=== PATIENT | female | born 2000 | race African-American/Black ===

== ENCOUNTER 2020-12-27 11:12 | Emergency (ER) | payer MEDICAID ==
[~2020-12-27] VITALS: Ht 167.6 cm; Wt 53.0 kg
[2020-12-27] MEDS ORDERED: BIRTH CONTROL (11:25)
[2020-12-27] MEDS ORDERED: AMOX-494 MT (11:59)
[2020-12-27] MEDS ORDERED: IBUP-2029 MT (12:01)
[2020-12-27] MEDS ORDERED: IBUPROFEN 600MG TABLET PO ONE (12:15)
[2020-12-27] MEDS ORDERED: DEXAMETHASONE 4MG/ML 1ML VIAL IM SCH (12:15)
[2020-12-27 12:19] VITALS: BP 108/69
== END 2020-12-27 12:20 | disposition home or self-care (01) ==
LOC: ER 11:36
DX: J02.0 Streptococcal pharyngitis (principal); R59.0 Localized enlarged lymph nodes; J35.1 Hypertrophy of tonsils; M79.10 Myalgia, unspecified site; R50.9 Fever, unspecified; Z79.899 Other long term (current) drug therapy
CPT/HCPCS: 96372; 99283; J1100

== ENCOUNTER 2021-04-18 03:33 | Emergency (ER) | payer MEDICAID ==
[~2021-04-18 03:33] MED LIST: AMOX-494 MT; BIRTH CONTROL; IBUP-2029 MT
== END 2021-04-18 05:34 | disposition home or self-care (01) ==
LOC: ER 03:33
DX: Z53.21 Procedure and treatment not carried out due to patient leaving prior to being seen by health care provider (principal)

== ENCOUNTER 2022-07-29 13:45 | Emergency (ER) | payer MEDICAID ==
[~2022-07-29] VITALS: Ht 172.7 cm; Wt 50.0 kg
[2022-07-29 13:47] VITALS: BP 108/74
[2022-07-29] MEDS ORDERED: ACETAMINOPHEN 325MG TABLET PO STA (15:00)
[2022-07-29] MEDS ORDERED: SODIUM CHLORIDE 0.9% 1,000 ML IV ONE (15:00)
[2022-07-29 16:36] LABS: HEMATOCRIT. 32.5 % (36.0-48.0); HEMOGLOBIN. 10.3 g/dL (12.0-16.0); MEAN CORPUSCULAR HEMOGLOBIN 24.8 pg (28.0-32.0); MEAN CORPUSCULAR VOLUME 78.1 fL (81.0-99.0); MEAN PLATELET VOLUME 8.1 fl (7.4-10.4); PLATELET 334 x1000/uL (130-400); RED BLOOD CELL COUNT 4.16 mill/uL (4.2-5.4); RED CELL DISTRIBUTION WIDTH 20.6 % (11.6-14.6)
[2022-07-29 16:45] LABS: PROTHROMBIN TIME 11.1 sec (9.6-11.0)
[2022-07-29] MEDS ORDERED: ACETAMINOPHEN 325MG TABLET PO NR (16:45)
[2022-07-29 16:46] LABS: CHLORIDE 106 mEq/L (98-107)
[2022-07-29 16:55] LABS: ETHANOL BLOOD < 10 mg/dL
[2022-07-29 17:07] LABS: HCG SCREEN NEGATIVE
[2022-07-29] MEDS ORDERED: IOHEXOL-300 100 ML BOTTLE ONE (17:33)
[2022-07-29 18:21] LABS: PLATELET ESTIMATE NORMAL
[2022-07-29 19:01] LABS: CLARITY URINE CLEAR (CLEAR); COLOR URINE YELLOW (YELLOW); KETONES URINE 3+ (NEGATIVE); LEUKOCYTE ESTERASE URINE NEGATIVE (NEGATIVE); NITRITE URINE NEGATIVE (NEGATIVE); OCCULT BLOOD URINE 2+ (NEGATIVE); PROTEIN URINE NEGATIVE (NEGATIVE); SPECIFIC GRAVITY URINE 1.078 (1.005-1.030); UROBILINOGEN URINE 0.2 E.U./dL (0.2-1.0)
[2022-07-29 19:13] LABS: *AMPHETAMINES SCREEN URINE NEGATIVE (NEGATIVE); *BARBITURATES SCREEN URINE NEGATIVE (NEGATIVE); *BENZODIAZEPINES SCREEN URINE NEGATIVE (NEGATIVE); *COCAINE SCREEN URINE NEGATIVE (NEGATIVE); CANNABINOID URINE SCREEN PRESUMTIVE POSITIVE (NEGATIVE); METHADONE URINE SCREEN NEGATIVE (NEGATIVE); OPIATES URINE SCREEN NEGATIVE (NEGATIVE); PHENCYCLIDINE URINE SCREEN NEGATIVE (NEGATIVE)
[2022-07-29] MEDS ORDERED: ONDA4TAB50 MT (19:20)
[2022-07-29] MEDS ORDERED: NAPR-681 MT (19:20)
== END 2022-07-29 19:53 | disposition home or self-care (01) ==
LOC: ER 13:45
DX: N83.202 Unspecified ovarian cyst, left side (principal); D64.9 Anemia, unspecified; N94.6 Dysmenorrhea, unspecified; Z00.00 Encounter for general adult medical examination without abnormal findings; Z79.899 Other long term (current) drug therapy
CPT/HCPCS: 36415; 74177; 76830; 76856; 80053; 80305; 80320; 81003; 83690; 84703; 85025; 85610; 86850; 86900; 86901; 96360; 96361; 99285; J7030; Q9967; Z7610; G0480

== ENCOUNTER 2022-12-01 16:45 | Inpatient (IN) | payer MEDICAID ==
[~2022-12-01] VITALS: Ht 167.6 cm; Wt 48.5 kg
[~2022-12-01 16:45] MED LIST changes: +NAPR-681 MT; +ONDA4TAB50 MT
[2022-12-01] MEDS ORDERED: SODIUM CHLORIDE 0.9% 1,000 ML IV ONE ×2 (17:00→21:00)
[2022-12-01] MEDS ORDERED: DIPHENHYDRAMINE 50MG/ML VIAL IV ONE (17:00)
[2022-12-01] MEDS ORDERED: PANTOPRAZOLE SODIUM 40 MG/VIAL IV ONE (17:00)
[2022-12-01] MEDS ORDERED: PROCHLORPERAZINE 10MG/2ML VIAL IV PRN (17:00)
[2022-12-01] MEDS ORDERED: KETOROLAC 15MG/ML VIAL IV ONE (17:15)
[2022-12-01 19:27] LABS: CLARITY URINE CLEAR (CLEAR); COLOR URINE YELLOW (YELLOW); KETONES URINE 2+ (NEGATIVE); LEUKOCYTE ESTERASE URINE NEGATIVE (NEGATIVE); NITRITE URINE NEGATIVE (NEGATIVE); OCCULT BLOOD URINE NEGATIVE (NEGATIVE); PH URINE 8.5 (4.5-8.0); PROTEIN URINE TRACE (NEGATIVE); SPECIFIC GRAVITY URINE 1.017 (1.005-1.030)
[2022-12-01 19:29] LABS: HEMATOCRIT. 28.6 % (36.0-48.0); HEMOGLOBIN. 8.9 g/dL (12.0-16.0); MEAN CORPUSCULAR HEMOGLOBIN 23.3 pg (28.0-32.0); MEAN PLATELET VOLUME 7.7 fl (7.4-10.4); PLATELET 399 x1000/uL (130-400); RED BLOOD CELL COUNT 3.81 mill/uL (4.2-5.4); RED CELL DISTRIBUTION WIDTH 18.8 % (11.6-14.6)
[2022-12-01 19:47] LABS: INR 1.1; PROTHROMBIN TIME 11.6 sec (9.6-11.0)
[2022-12-01 19:54] LABS: CHLORIDE 107 mEq/L (98-107)
[2022-12-01 19:59] LABS: HCG SCREEN NEGATIVE
[2022-12-01 20:07] LABS: *AMPHETAMINES SCREEN URINE NEGATIVE (NEGATIVE); *BARBITURATES SCREEN URINE NEGATIVE (NEGATIVE); *BENZODIAZEPINES SCREEN URINE NEGATIVE (NEGATIVE); *COCAINE SCREEN URINE NEGATIVE (NEGATIVE); METHADONE URINE SCREEN NEGATIVE (NEGATIVE); OPIATES URINE SCREEN NEGATIVE (NEGATIVE); PHENCYCLIDINE URINE SCREEN NEGATIVE (NEGATIVE)
[2022-12-01 20:08] LABS: CANNABINOID URINE SCREEN PRESUMTIVE POSITIVE (NEGATIVE)
[2022-12-01] MEDS ORDERED: CEFTRIAXONE 1GM PREMIX 50 ML IV ONE (20:15)
[2022-12-01 20:16] LABS: PLATELET ESTIMATE NORMAL
[2022-12-01] MEDS ORDERED: METRONIDAZOLE 500 MG PREMIX 100 ML IV NR (21:45)
[2022-12-01] MEDS ORDERED: SODIUM CHLORIDE 0.9% 500 ML IV ONE (23:00)
[2022-12-01] MEDS ORDERED: LIDOCAINE HCL/EPINEPHRINE 1%-EPI 1:100,000 20 ML VIAL INFIL ONE (23:15)
[2022-12-01] MEDS ORDERED: BACITRACIN ZINC OINT UDPKT TOP ONE (23:15)
[2022-12-01] MEDS ORDERED: HYDROCODONE/ACETAMINOPHEN 10/325MG TABLET PO PRN (23:45)
[2022-12-01] MEDS ORDERED: IPRATROPIUM/ALBUTEROL 0.5-3(2.5)MG/3ML NEB HHN PRN (23:45)
[2022-12-01] MEDS ORDERED: HYDROCODONE/ACETAMINOPHEN 5/325MG TABLET PO PRN (23:45)
[2022-12-01] MEDS ORDERED: CLONIDINE 0.1MG TABLET PO PRN (23:45)
[2022-12-01] MEDS ORDERED: ONDANSETRON HCL 4MG/2ML INJ IV PRN (23:45)
[2022-12-01] MEDS ORDERED: LIDOCAINE HCL/EPINEPHRINE 1%-EPI 1:100,000 30 ML VIAL INFIL NR (23:45)
[2022-12-01] MEDS ORDERED: ACETAMINOPHEN 325MG TABLET PO PRN ×2 (23:45)
[2022-12-02] MEDS ORDERED: SODIUM CHLORIDE 0.45% 1,000 ML IV ONE (00:30)
[2022-12-02] MEDS ORDERED: SULFAMETHOXAZOLE/TRIMETHOPRIM 400/80MG TAB PO SCH ×2 (00:45→06:00)
[2022-12-02 01:31] LABS: T4 FREE 0.94 ng/dL (0.76-1.46)
[2022-12-02 01:48] LABS: VITAMIN B12 SERUM 622 pg/mL (211-911)
[2022-12-02 02:02] LABS: FERRITIN 5 ng/mL (10-291)
[2022-12-02 03:30] VITALS: BP 92/51
[2022-12-02 04:01] VITALS: BP 92/51
[2022-12-02 07:22] LABS: BASOPHILS % 0.3 % (0.0-2.0); EOSINOPHILS % 0.1 % (0.0-5.0); HEMOGLOBIN. 7.8 g/dL (12.0-16.0); LYMPHOCYTES % 10.9 % (20.0-50.0); MEAN CORPUSCULAR HEMOGLOBIN 23.3 pg (28.0-32.0); MEAN CORPUSCULAR VOLUME 75.1 fL (81.0-99.0); MEAN PLATELET VOLUME 7.9 fl (7.4-10.4); MONOCYTES % 8.7 % (2.0-8.0); PLATELET 338 x1000/uL (130-400); RED BLOOD CELL COUNT 3.33 mill/uL (4.2-5.4); RED CELL DISTRIBUTION WIDTH 18.3 % (11.6-14.6)
[2022-12-02 07:48] LABS: CHLORIDE 110 mEq/L (98-107)
[2022-12-02 08:00] VITALS: BP 88/47
[2022-12-02] MEDS: FERROUS SULFATE 325MG TABLET PO SCH ×2 (08:56→11:56)
[2022-12-02 12:00] VITALS: BP 117/74
[2022-12-02 12:19] VITALS: BP 117/74
[2022-12-02] MEDS ORDERED: POTASSIUM CHLORIDE 20MEQ TABLET SR PO NR (12:30)
== END 2022-12-02 13:47 | disposition home or self-care (01) | DRG 531 ==
LOC: ER 17:10 → 7EST 23:20
PROVIDERS: ADMIT Hospitalist; ATTEND Hospitalist
DX: N75.1 Abscess of Bartholin's gland (principal); D25.9 Leiomyoma of uterus, unspecified; D50.9 Iron deficiency anemia, unspecified; N92.0 Excessive and frequent menstruation with regular cycle; N76.4 Abscess of vulva
CPT/HCPCS: 36415; 74177; 76830; 76856; 80048; 80053; 80305; 81003; 82607; 82728; 82746; 83036; 83540; 83550; 83605; 84145; 84439; 84443; 84703; 85025; 99291; C9113; J0696; J1200; J1885; J3490; J7030